=== PATIENT | female | born 1985 | race Caucasian/White ===

== ENCOUNTER 2017-05-29 12:56 | Emergency (ER) | payer OTHER ==
[2017-05-29 15:15] LABS: Urine Bacteria Absent (Absent); Urine Bilirubin Negative (Negative); Urine Glucose Negative (Negative); Urine Nitrite Negative (Negative)
[2017-05-29 15:31] LABS: Hematocrit 37 % (35-47); Hemoglobin 12.8 g/dl (12.0-16.0); Mean Corpuscular HGB Conc 35 g/dl (31-36); Mean Corpuscular Hemoglobin 28 pg (27-31); Mean Corpuscular Volume 82 fL (80-97); Mean Platelet Volume 8 um3 (7.4-10.4); Red Blood Count 4.52 10^6/ul (4.0-5.4); Red Cell Distribution Width 14 % (10.5-15); White Blood Count 8.9 10^3/ul (3.5-10.8)
[2017-05-29 15:46] LABS: Albumin 4.1 g/dL (3.2-5.2); BUN/Creatinine Ratio 8.8 (8-20); Calcium 9.5 mg/dL (8.6-10.3); EGFR Non-African American 100.3 (>60); Globulin 3.6 g/dL (2-4); Potassium 3.4 mmol/L (3.5-5.0); Total Bilirubin 0.3 mg/dL (0.2-1.0); Total Protein 7.7 g/dL (6.4-8.9)
--- NOTE | 2017-05-29 16:12 | ED ---
- HPI Summary HPI Summary: 32 female presents with complaints of vaginal spotting and some minimal bleeding that began yesterday and worsened this morning. Patient is 9 weeks . Had + urine test at [facility] back home. Patient has not had any Rhogam or blood U/S yet. Is O negative and has had rhogam in one previous . She is 3 para 2. Denies any lower abdominal pain or cramping. No reproductive history or problems with previous besides pre-eclampsia with second child. Has not taken any medications, only taking prenatals. No other PMHx. Denies any issues up until spotting. States she had a pap smear a few days ago and had sexual intercourse which is what she originally related the spotting to and was not concerned until this morning there was bright red blood when using bathroom and wiping. Normal bowel movements. No urinary symptoms. No other discharge or complaints. Denies abdominal pain, nausea, vomiting and fever/chills. LMP March 22. No drug alcohol or substance use. - History of Current Complaint Chief Complaint: EDVaginalBleeding Stated Complaint: 9WKS PREG/VAG BLEEDING Time Seen by Provider: 05/29/17 14:57 Hx Obtained From: Patient Chief Complaint: Concern for Embryonic Dem, Vaginal Bleeding - spotting/ mild bright red bleeding Onset/Duration: Started Hours Ago - 12:30pm Timing: Lasting Days - began yesterday, worse today Severity: Mild Current Severity: Mild Pain Intensity: 2 Location of Pain: Suprapubic - very mild, intermittently with urinating mainly Character: Cramping Aggravating Factors: Urination Alleviating Factors: Nothing Associated Signs and Symptoms: Positive: Vaginal Bleeding or Discharge - Assessment Hx Now: Yes Hx : 3 Hx Para: 2 - Allergies/Home Medications Allergies/Adverse Reactions: Allergies Allergy/AdvReac Type Severity Reaction Status Date / Time Bacitracin [From Neosporin] Allergy Rash Verified 05/29/17 13:00 Neomycin [From Neosporin] Allergy Rash Verified 05/29/17 13:00 Polymyxin B [From Neosporin] Allergy Rash Verified 05/29/17 13:00 Shellfish Allergy Allergy Anaphylatic Verified 05/29/17 13:01 Shock PMH/Surg Hx/FS Hx/Imm Hx Endocrine/Hematology History: Denies: Hx Diabetes Cardiovascular History: Denies: Hx Hypertension Respiratory History: Denies: Hx Asthma - Surgical History Surgery Procedure, Year, and Place: none - Immunization History Immunizations Up to Date: Yes Infectious Disease History: No Infectious Disease History: Denies: Traveled Outside the [place] in Last 30 Days - Family History Known Family History: Positive: None - Social History Alcohol Use: None Substance Use Type: Reports: None Smoking Status (MU): Never Smoked Tobacco Review of Systems Constitutional: Negative Cardiovascular: Negative Respiratory: Negative Gastrointestinal: Negative Positive: other - vaginal bleeding, spotting Skin: Negative Neurological: Negative All Other Systems Reviewed And Are Negative: Yes Physical Exam - Physical Exam Triage Information Reviewed: Yes Vital Signs On Initial Exam: temp: 98.9 resp: 16 bp: 140/90 hr: 107 O2: 100 Vital Signs Reviewed: Yes Appearance: Positive: Well-Appearing, No Pain Distress, Well-Nourished Skin: Positive: Warm, Skin Color Reflects Adequate Perfusion, Dry. Negative: Cold, Cyanosis @, Pale, Erythema @ Head/Face: Positive: Normal Head/Face Inspection Eyes: Positive: Conjunctiva Clear ENT: Positive: Hearing grossly normal, Pharynx normal, TMs normal Neck: Positive: Supple, Nontender, No Lymphadenopathy Respiratory/Lung Sounds: Positive: Clear to Auscultation, Breath Sounds Present. Negative: Rales, Rhonchi, Stridor, Wheezes Cardiovascular: Positive: Normal, RRR, Pulses are Symmetrical in both Upper and Lower Extremities. Negative: Murmur, Rub Abdomen Description: Positive: Nontender, No Organomegaly, Soft, Other: - patient deferred pelvic due to bleeding and want to go home, no symptoms. Negative: Bruit, CVA Tenderness (R), CVA Tenderness (L), Distended, Guarding, McBurney's Point Tenderness, Peritoneal Signs, Pulsatile Mass Bowel Sounds: Positive: Present Musculoskeletal: Positive: Normal, Strength/ROM Intact Neurological: Positive: Normal, Sensory/Motor Intact, Alert, Oriented to Person Place, Time Psychiatric: Positive: Affect/Mood Appropriate - Vaginal Assessment Examined By: Doris Perez - deferred Diagnostics - Vital Signs Vital Signs Temp Pulse Resp BP Pulse Ox 05/29/17 13:46 98.9 F 106 16 140/90 100 05/29/17 13:01 98.9 F 107 16 140/90 100 - Laboratory Lab Results: Lab Results 05/29/17 05/29/17 05/29/17 Range/Units 13:45 15:22 15:22 WBC 8.9 (3.5-10.8) 10^3/ul RBC 4.52 (4.0-5.4) 10^6/ul Hgb 12.8 (12.0-16.0) g/dl Hct 37 (35-47) % MCV 82 (80-97) fL MCH 28 (27-31) pg MCHC 35 (31-36) g/dl RDW 14 (10.5-15) % Plt Count 296 (150-450) 10^3/ul MPV 8 (7.4-10.4) um3 Neut % (Auto) 77.2 (38-83) % Lymph % (Auto) 16.0 L (25-47) % Crowley % (Auto) 5.3 (1-9) % Eos % (Auto) 1.1 (0-6) % Baso % (Auto) 0.4 (0-2) % Absolute Neuts (auto) 6.9 (1.5-7.7) 10^3/ul Absolute Lymphs (auto) 1.4 (1.0-4.8) 10^3/ul Absolute Monos (auto) 0.5 (0-0.8) 10^3/ul Absolute Eos (auto) 0.1 (0-0.6) 10^3/ul Absolute Basos (auto) 0 (0-0.2) 10^3/ul Absolute Nucleated RBC 0 10^3/ul Nucleated RBC % 0 INR (Anticoag Therapy) 0.99 (0.89-1.11) APTT 32.8 (26.0-36.3) seconds Sodium (133-145) mmol/L Potassium (3.5-5.0) mmol/L Chloride (101-111) mmol/L Carbon Dioxide (22-32) mmol/L Anion Gap (2-11) mmol/L BUN (6-24) mg/dL Creatinine (0.51-0.95) mg/dL Est GFR ( Amer) (>60) Est GFR (Non-Af Amer) (>60) BUN/Creatinine Ratio (8-20) Glucose (70-100) mg/dL Lactic Acid (0.5-2.0) mmol/L Calcium (8.6-10.3) mg/dL Total Bilirubin (0.2-1.0) mg/dL AST (13-39) U/L ALT (7-52) U/L Alkaline Phosphatase (34-104) U/L Total Protein (6.4-8.9) g/dL Albumin (3.2-5.2) g/dL Globulin (2-4) g/dL Albumin/Globulin Ratio (1-3) Beta HCG, Quant Urine Color Straw Urine Appearance Clear Urine pH 7.0 (5-9) Ur Specific [place] 1.005 L (1.010-1.030) Urine Protein Negative (Negative) Urine Ketones Negative (Negative) Urine Blood 3+ H (Negative) Urine Nitrate Negative (Negative) Urine Bilirubin Negative (Negative) Urine Urobilinogen Negative (Negative) Ur Leukocyte Esterase Negative (Negative) Urine WBC (Auto) Absent (Absent) Urine RBC (Auto) 1+(3-5/hpf) H (Absent) Ur Squamous Epith Cells Present H (Absent) Urine Bacteria Absent (Absent) Urine Glucose Negative (Negative) 05/29/17 05/29/17 Range/Units 15:22 15:22 WBC (3.5-10.8) 10^3/ul RBC (4.0-5.4) 10^6/ul Hgb (12.0-16.0) g/dl Hct (35-47) % MCV (80-97) fL MCH (27-31) pg MCHC (31-36) g/dl RDW (10.5-15) % Plt Count (150-450) 10^3/ul MPV (7.4-10.4) um3 Neut % (Auto) (38-83) % Lymph % (Auto) (25-47) % Crowley % (Auto) (1-9) % Eos % (Auto) (0-6) % Baso % (Auto) (0-2) % Absolute Neuts (auto) (1.5-7.7) 10^3/ul Absolute Lymphs (auto) (1.0-4.8) 10^3/ul Absolute Monos (auto) (0-0.8) 10^3/ul Absolute Eos (auto) (0-0.6) 10^3/ul Absolute Basos (auto) (0-0.2) 10^3/ul Absolute Nucleated RBC 10^3/ul Nucleated RBC % INR (Anticoag Therapy) (0.89-1.11) APTT (26.0-36.3) seconds Sodium 136 (133-145) mmol/L Potassium 3.4 L (3.5-5.0) mmol/L Chloride 105 (101-111) mmol/L Carbon Dioxide 26 (22-32) mmol/L Anion Gap 5 (2-11) mmol/L BUN 6 (6-24) mg/dL Creatinine 0.68 (0.51-0.95) mg/dL Est GFR ( Amer) 129.0 (>60) Est GFR (Non-Af Amer) 100.3 (>60) BUN/Creatinine Ratio 8.8 (8-20) Glucose 89 (70-100) mg/dL Lactic Acid 0.7 (0.5-2.0) mmol/L Calcium 9.5 (8.6-10.3) mg/dL Total Bilirubin 0.30 (0.2-1.0) mg/dL AST 18 (13-39) U/L ALT 19 (7-52) U/L Alkaline Phosphatase 76 (34-104) U/L Total Protein 7.7 (6.4-8.9) g/dL Albumin 4.1 (3.2-5.2) g/dL Globulin 3.6 (2-4) g/dL Albumin/Globulin Ratio 1.1 (1-3) Beta HCG, Quant Pending Urine Color Urine Appearance Urine pH (5-9) Ur Specific [place] (1.010-1.030) Urine Protein (Negative) Urine Ketones (Negative) Urine Blood (Negative) Urine Nitrate (Negative) Urine Bilirubin (Negative) Urine Urobilinogen (Negative) Ur Leukocyte Esterase (Negative) Urine WBC (Auto) (Absent) Urine RBC (Auto) (Absent) Ur Squamous Epith Cells (Absent) Urine Bacteria (Absent) Urine Glucose (Negative) Result Diagrams: 05/29/17 15:22 05/29/17 15:22 Lab Statement: Any lab studies that have been ordered have been reviewed, and results considered in the medical decision making process. Course/Dx - Course Course Of Treatment: not in any pain. labs obtained, HCG, CBC/CMP type and screen and urinalysis. unremarkable labs and urine. ultrasound showed gestational sac with no pole. patient has not recieved rhogam however has 72 hours from start of bleeding to recieve. spoke with her home OBGYN. supported and consoled. appears to be having a miscarriage versus early vaginal bleeding. deferred pelvic exam as she was not worried about infection and wanted to go home. patient understands what is going on and agrees with plan. will follow up with her OBGYN tomorrow for repeat HCG and US. Aware of worsening signs and symptoms to watch out for and to return to ED if occur (hemorrhaging, pain, lightheaded etc). Follow up and tylenol for pain. Panty liners/pads for bleeding, no tampon use. - Differential Diagnosis/HQI/PQRI: Incomplete , Missed , Spontaneous , Threatened , Ectopic , Intrauterine , Ovarian Cyst, Early , UTI, Vaginal Bleeding - Diagnoses Provider Diagnoses: Vaginal bleeding before 22 weeks gestation Discharge - Discharge Plan Condition: Stable Disposition: HOME Patient Education Materials: First Trimester Vaginal Bleed (ED) Referrals: Non Staff,Doctor [Primary Care Provider] - Additional Instructions: Tylenol for any pain and discomfort. Continue use of panty liners. If you develop worsening bleeding/hemorrhage or clots with increased pain please seek medical attention immediately. Follow up with OBGYN tomorrow for repeats US and HCG. Be supported by loving family and friends. Drink plenty of fluids and rest.
--- NOTE | 2017-05-29 17:01 | RAD ---
HISTORY: Vaginal bleeding, . Gestational age by dates of 9 weeks and 5 days COMPARISONS: None TECHNIQUE: Multiple transverse and longitudinal ultrasound images were obtained of the pelvis using grayscale, color Doppler, and spectral Doppler imaging using the endovaginal transducer. FINDINGS: UTERUS: The uterus is normal in shape, size, contour, and echotexture. GESTATION: A gestational sac is identified. The margins of the sac are irregular. No pole is identified. A yolk sac is noted.. The mean sac diameter measures 2.4 cm for a gestational age of 7 weeks and 4 days.. cardiac motion is not detected. Gross movement is not identified. anatomy cannot be assessed secondary to early dates. The amniotic fluid is qualitatively normal. There are no retroplacental fluid collections. CUL-DE-SAC: There is no free fluid within the cul-de-sac. RIGHT OVARY: The right ovary is not well-visualized. LEFT OVARY: The left ovary measures 4.2 x 3.1 x 2.9 cm. Follicular cysts are noted BLADDER: The bladder is not well visualized. IMPRESSION: 1. A GESTATIONAL SAC IS NOTED WITHOUT POLE. THE GESTATIONAL SAC IS SOMEWHAT IRREGULAR IN MARGINS. THE GESTATIONAL AGE BY MEAN SAC DIAMETER IS 7 WEEKS AND 4 DAYS WHICH IS NOT CONCORDANT WITH AGE BY DATES. 2. THE DIFFERENTIAL INCLUDES EARLY INTRAUTERINE , ANEMBRYONIC , OR IN PROGRESS. RECOMMEND CORRELATION WITH SERIAL BETA HCG LEVELS AND FOLLOW-UP IMAGING
[2017-05-29 17:45] VITALS: BP 136/88
== END 2017-05-29 17:44 | disposition home or self-care (01) ==
LOC: ED 12:56
DX: O46.91 Antepartum hemorrhage, unspecified, first trimester (principal); Z3A.09 9 weeks gestation of pregnancy
CPT/HCPCS: 36415; 76817; 80053; 81003; 81015; 83605; 84702; 85025; 85610; 85730; 86850; 86900; 86901; 99282